=== PATIENT | female | born 1980 | race Caucasian/White ===

== ENCOUNTER 2021-06-25 07:27 | Inpatient (IN) | payer BC, OTHER ==
[~2021-06-25 07:27] MED LIST: Dexamethasone 4 MG/ML SDV ONE; Glycopyrrolate 0.2 MG/ML 5 ML MDV ONE; Midazolam 1 MG/ML 2 ML SDV ONE; Ondansetron 4 MG/2 ML SDV ONE; Propofol 200 MG/20 ML SDV ONE; Rocuronium 50 MG/5 ML Vial ONE; cefOXitin 2 GM Vial ONE; fentaNYL 250 MCG/5 ML SDV ONE
[2021-06-25] MEDS ORDERED: Celecoxib 200 MG Cap PO ONE (07:45)
[2021-06-25] MEDS ORDERED: Dextrose 5%-Lactated Ringers 1,000 ML IV SCH ×2 (07:45→13:45)
[2021-06-25] MEDS ORDERED: Acetaminophen 500 MG Tab PO ONE (07:45)
[2021-06-25] MEDS ORDERED: cefOXitin 2 GM in Sodium Chloride 0.9% 50 ML IV ONE (07:45)
[2021-06-25] MEDS ORDERED: Scopolamine 1.5 MG Transdermal Patch TOP SCH (07:45)
[2021-06-25] MEDS ORDERED: Ketamine 18 MG in Sodium Chloride 0.9% 19.82 ML IV SCH (09:15)
[2021-06-25] MEDS ORDERED: Ketamine 500 MG/5 ML MDV IV SCH (09:15)
[2021-06-25] MEDS ORDERED: Rocuronium 50 MG/5 ML Vial ONE (09:42)
[2021-06-25] MEDS ORDERED: fentaNYL 100 MCG/2 ML SDV ONE ×2 (10:45→12:03)
[2021-06-25] MEDS ORDERED: diphenhydrAMINE 50 MG/ML SDV IVPUSH PRN ×2 (10:50→14:00)
[2021-06-25] MEDS ORDERED: Ondansetron 4 MG/2 ML SDV IVPUSH PRN ×2 (10:50→14:00)
[2021-06-25] MEDS ORDERED: diphenhydrAMINE 25 MG Cap PO PRN (10:50)
[2021-06-25] MEDS ORDERED: Naloxone 0.4 MG/ML SDV IVPUSH PRN (10:50)
[2021-06-25] MEDS ORDERED: cefOXitin 2 GM Vial ONE (10:52)
[2021-06-25] MEDS: HYDROmorphone/Normal Saline 6 MG/30 ML PCA Vial IV PRN ×2 (11:08→20:25)
[2021-06-25] MEDS ORDERED: Sugammadex Sodium 200 MG/2 ML VIAL ONE (11:14)
[2021-06-25] MEDS ORDERED: Meropenem 500 MG SDV ONE (11:18)
[2021-06-25] MEDS ORDERED: Sodium Chloride 0.9% 10 ML ONE (11:18)
[2021-06-25] MEDS ORDERED: Naloxone 0.4 MG/ML SDV IV PRN (12:00)
[2021-06-25] MEDS ORDERED: fentaNYL 100 MCG/2 ML SDV IVPUSH ONE (12:46)
[2021-06-25] MEDS ORDERED: hydrOXYzine HCL 100 MG/2 ML SDV IM ONE (12:46)
[2021-06-25] MEDS ORDERED: Labetalol 100 MG/20 ML MDV IVPUSH PRN (13:52)
[2021-06-25] MEDS ORDERED: Metoclopramide 10 MG/2 ML SDV IVPUSH PRN (14:00)
[2021-06-25] MEDS ORDERED: Acetaminophen 500 MG Tab PO PRN (14:00)
[2021-06-25] MEDS ORDERED: Labetalol 20 MG/4 ML Syringe IVPUSH PRN (14:00)
[2021-06-25] MEDS ORDERED: Pantoprazole 40 MG Vial IVPUSH SCH (14:00)
[2021-06-25] MEDS: Acetaminophen 500 MG Tab PO SCH (15:11)
[2021-06-25] MEDS: Heparin Sodium 5,000 Units/ML Vial SUBCUT SCH (15:11)
[2021-06-25] MEDS: cefOXitin 2 GM in Sodium Chloride 0.9% 50 ML IV SCH ×2 (15:16→21:57)
[2021-06-25] MEDS: MVI, Adult with Vitamin K 10 ML, Thiamine 200 MG, Zinc/Copper/Manganese/Selenium 1 ML i... IV SCH ×4 (16:09)
[2021-06-26] MEDS: Acetaminophen 500 MG Tab PO SCH ×4 (00:18→23:00)
[2021-06-26] MEDS ORDERED: Iopamidol 612 MG/ML 50 ML SDV PO STA (02:46)
[2021-06-26] MEDS: Heparin Sodium 5,000 Units/ML Vial SUBCUT SCH ×2 (03:13→15:03)
[2021-06-26] MEDS: cefOXitin 2 GM in Sodium Chloride 0.9% 50 ML IV SCH ×4 (03:13→22:51)
[2021-06-26] MEDS ORDERED: Ondansetron 4 MG Tab.DIS PO PRN (07:41)
[2021-06-26] MEDS: Dextrose 5%-Lactated Ringers 1,000 ML IV SCH (08:24)
[2021-06-26] MEDS: Celecoxib 200 MG Cap PO SCH ×2 (08:26→20:14)
[2021-06-26] MEDS: Citalopram 20 MG Tab PO SCH (08:26)
[2021-06-26] MEDS: SCOPOLAMINE PATCH CHECK TOP SCH (08:27)
--- NOTE | 2021-06-26 08:33 | PN ---
DATE OF SERVICE: 06/26/2021 SUBJECTIVE: Bozena is postop day 1. Upper GI was normal this morning. Oral intake 2300, output 3100. LUCY drain put out 115 mL of a light pink drainage. She has been up ambulating. Using her incentive spirometer. Vital signs stable. REVIEW OF SYSTEMS: Remainder of review of systems negative for any pertinent positives and negatives. OBJECTIVE: GENERAL: Bozena Mcgarry is a pleasant 41-year-old female. VITAL SIGNS: TPR is 97.9, 86, 16, blood pressure 136/90. HEENT: Negative. NECK: Supple. HEART: Regular rate and rhythm. LUNGS: Clear. ABDOMEN: Dressing dry and intact. Abdominal binder is on. LUCY drain as above. EXTREMITIES: Without peripheral edema. ASSESSMENT: Laparoscopic turned to open procedure. 1. Naomi-en-Y gastric bypass surgery. 2. Jonathan-Cut needle liver biopsy. 3. Small bowel resection en bloc with mesenteric mass. 4. Placement of Vicryl mesh. POSTOPERATIVE DIAGNOSES: 1. Morbid obesity. 2. Hepatomegaly. 3. Mesenteric mass proximal small bowel. Date of procedure 06/25/2021. Surgeon: Hoang Chan MD. PLAN: 1. Discontinue Roth catheter. 2. Decrease IV to 100 mL/hr. 3. Step 2 gastric bypass diet with no cereal. 4. May shower. 5. Zofran 4 mg ODT q.4 hours p.r.n. nausea. 6. Discontinue PROMOTIONS OFFICER per the patient's request. Discontinue oximetry and telemetry. 7. Oxycodone 5 mg q.4 hours p.r.n. pain. 8. Communication order, 3 med cups per hour, record at bedside. 9. Continue use of incentive spirometer and ambulation. 10.We will evaluate p.r.n. or in a.m. Ernestine Charles PA-C /[id number]
--- NOTE | 2021-06-26 09:26 | CR ---
[facility] HISTORY: Postbariatric surgery FINDINGS: Patient swallowed water-soluble contrast. Upright views of the abdomen show no evidence of extravasation or obstruction. There is a surgical drain in the left upper quadrant. IMPRESSION: Status post bariatric surgery No extravasation or obstruction seen
[2021-06-26] MEDS: oxyCODONE 5 MG Tab PO PRN ×3 (11:47→20:13)
[2021-06-26] MEDS: Cyclobenzaprine 10 MG Tab PO PRN (11:49)
[2021-06-26] MEDS ORDERED: Pantoprazole 40 MG Delayed-Release Granules 1 Packet PO SCH (14:00)
[2021-06-26] MEDS: hydrOXYzine HCL 100 MG/2 ML SDV IM PRN (15:03)
[2021-06-26] MEDS: MVI, Adult with Vitamin K 10 ML, Thiamine 200 MG, Zinc/Copper/Manganese/Selenium 1 ML i... IV SCH ×4 (17:14)
[2021-06-27] MEDS: Heparin Sodium 5,000 Units/ML Vial SUBCUT SCH (02:58)
[2021-06-27] MEDS: oxyCODONE 5 MG Tab PO PRN ×2 (02:58→10:56)
[2021-06-27] MEDS: cefOXitin 2 GM in Sodium Chloride 0.9% 50 ML IV SCH (03:00)
[2021-06-27] MEDS: Dextrose 5%-Lactated Ringers 1,000 ML IV SCH (03:00)
[2021-06-27] MEDS ORDERED: Magnesium Hydroxide 400 MG/5 ML Susp 30 ML Cup PO PRN (07:33)
[2021-06-27] MEDS: Acetaminophen 500 MG Tab PO SCH (07:46)
[2021-06-27] MEDS: Cyclobenzaprine 10 MG Tab PO PRN (07:51)
[2021-06-27] MEDS: hydrOXYzine HCL 100 MG/2 ML SDV IM PRN (07:56)
[2021-06-27] MEDS: Celecoxib 200 MG Cap PO SCH (08:03)
[2021-06-27] MEDS: SCOPOLAMINE PATCH CHECK TOP SCH (08:03)
[2021-06-27] MEDS: Citalopram 20 MG Tab PO SCH (08:03)
[2021-06-27] MEDS ORDERED: Cyanocobalamin (Vitamin B12) 1,000 MCG/ML SDV IM ONE (09:00)
--- NOTE | 2021-06-27 09:40 | OR ---
DATE OF PROCEDURE: 06/25/2021 SURGEON: Hoang Chan MD PREOPERATIVE DIAGNOSIS: Morbid obesity. POSTOPERATIVE DIAGNOSES: 1. Morbid obesity. 2. Marked hepatomegaly. 3. Mesenteric mass involving partially obstructing proximal small bowel. OPERATIVE PROCEDURE: 1. Diagnostic laparoscopy converted to open laparotomy with: a. Naomi-en-Y gastric bypass (40565). b. Jonathan-Cut needle liver biopsy (77444). c. Small bowel resection en bloc with mesenteric mass (20056, [id number]). d. Placement of Vicryl mesh to displace pelvic and abdominal wall from underlying viscera to limit subsequent adhesion formation (47979). ANESTHESIA: General. PRODUCT MANAGEMENT ANALYST: Ernestine Charles PA-C; GHULAM Barry. INDICATIONS FOR PROCEDURE: A 41-year-old female status post lap band placement and subsequent lap band removal in [place] in March of last year. She presents now for a Naomi- en-Y gastric bypass. Potential risks of the procedure including bleeding, infection, injury to underlying viscera, problems with bowel obstruction over time, leaks from GI tract closures, as well as possibility of cardiopulmonary, septic, or hemorrhagic complications leading to were discussed, and the patient wishes to proceed. DETAILS OF PROCEDURE: The patient was taken to the operating room. After general endotracheal anesthesia was induced, she was placed in a lithotomy position and the abdomen prepped and draped. Subsequently, Roth catheter was inserted at the conclusion of the procedure. After the abdomen was prepped and draped, a transverse incision was made 15 cm inferior and 5 cm left of the xiphoid process, and the peritoneal cavity entered under direct vision with an Optiview trocar. Peritoneal cavity was inflated with 15 mmHg pressure with CO2. Laparoscope was then inserted. No underlying trocar insertion site injuries were seen. Bilateral transversus abdominis plane blocks were then placed, and initially the patient was noted to have a marked hepatomegaly. Five additional trocars were placed across the upper and mid abdomen, and Jonathan-Cut needle biopsy from left lobe of liver was obtained and bleeding from the biopsy site was controlled with electrocautery. At this point, the omentum was divided in the midline up to the level of the transverse colon and small bowel identified at ligament of Treitz. Roughly 30 cm distal to the ligament of Treitz, the patient was noted to have a large mesenteric mass, roughly the size of a tennis ball. The small bowel was draped over it, partially obstructing the bowel distended proximal to this. The mass was fairly mobile and not associated with any fixation to the surrounding structures. However, this clearly would require resection. Differential diagnosis would include a desmoid tumor along with other possibilities. At that point, the family was informed of the findings and we decided to proceed with an open approach with removal of the mass. If there did not appear to be any contraindication at the end of a mass excision, we would then continue with the gastric bypass procedure. After the trocars were removed, the midline incision from the xiphoid just above the umbilicus was made and carried down through the skin and subcutaneous tissue and through the fascia into the peritoneal cavity. The mass was then mobilized upward. This again was noted to have small bowel draped over it. Several centimeters proximal and distal to the point of fixation, the small bowel was divided with the VARINDER stapler and the underlying mesentery was then divided with the VARINDER marie containing what appeared to be a satisfactory margin away from the mass and the specimen consisting of the mesenteric mass and the en bloc small-bowel resection was delivered from the field. The small bowel was then run through its length as was the large bowel, no additional mesenteric pathology was seen, and there was otherwise no evidence of any metastatic disease either intraperitoneally or within the viscera. There is no lymphadenopathy noted within the mesenteric or paraaortic areas. At this point, we used the present level of resection as a point of formation of the Naomi limb. The proximal small bowel at this point was roughly 10 cm distal to the ligament of Treitz allowing adequate use of that for the biliopancreatic limb and it was then anastomosed to the small bowel roughly 150 cm distal to the point of division giving the Naomi limb length of 150 cm. A [id number] enterostomy was accomplished with an internal firing of the Endo-VARINDER 60 mm stapler followed by the closure of the common opening with VARINDER stapler as well. Angles of anastomosis and mesenteric defect were approximated with some 3- 0 Vicryl stitch. At this point, attention was taken to the upper abdomen. The left triangular ligament was divided which allowed medial retraction of the left lobe of liver. Some adhesions between the area of the previous band were then taken down with a combination of cautery and staple dissection. The stomach just below the esophagogastric junction was then encircled. This was in a relatively clean plane away from the likely band imprint, and after being encircled, this area was then divided with 2 firings of VARINDER black loads given the relatively thick nature of the tissue at that level. The anvil of a 25 mm EEA stapler was then attached to Heidrick sump type tube. The latter was brought down through the mouth and taken out through a small opening in the gastric pouch, allowing the anvil to be pulled down to within the gastric pouch. The main body of the EEA stapler was then passed through an opening at the end of the Naomi limb. This was brought through gastric antecolic approach without tension to the proximal divided stomach. This was united with the anvil and the stapler fired thus creating the gastrojejunostomy. Upon removal of the stapler, double donuts of mucosa were noted within it. Small bowel was closed off with a vascular staple line. The gastrojejunostomy was reinforced with some 3-0 Vicryl seromuscular stitch. At this point, the abdomen was irrigated with meropenem- containing saline solution. No further problems were noted. There were some stitches placed between the mesentery of the Naomi limb and the underlying omentum and perigastric soft tissues to close off the mesenteric defect. A single Devan-Dsouza drain was placed through a left subcostal trocar site and positioned up against the gastrojejunostomy and from there into the splenic fossa. At this point, no further problems were noted. To limit recurrent adhesion formation between the viscera and the pelvic and abdominal wall, a 12 inch area of Vicryl mesh was placed in those areas given the likelihood of possible need for additional surgery given the tumor being identified. The fascia was then approximated with #2 Vicryl stitch, subcutaneous tissue with 2 layers of 3-0 and 4-0 Vicryl stitch, and the skin with marie. Dressing was applied. The patient was taken to the recovery room in satisfactory condition. Physician clothing sales assistant, Ernestine Charles, played an essential role in assisting in this case, helping to position the patient, retract structures as needed, as well as suturing and cutting sutures when indicated. Her presence improved patient safety and decreased operative time. Hoang Chan MD /[id number]
--- NOTE | 2021-06-27 10:24 | DISCH ---
ADMISSION DIAGNOSES: Morbid obesity, iron deficiency anemia, gastroesophageal reflux disease, depression, and history of lap band removal. DISCHARGE DIAGNOSES: Laparoscopy turned to open laparotomy: 1. Naomi-en-Y gastric bypass surgery. 2. Jonathan-Cut needle liver biopsy. 3. Small bowel resection en bloc with mesenteric mass. 4. Placement of Vicryl mesh. POSTOPERATIVE DIAGNOSES: 1. Morbid obesity. 2. Hepatomegaly. 3. Mesenteric mass in proximal small bowel. Date of procedure 06/25/2021. Surgeon: Hoang Chan MD. HISTORY: Bozena is a 41-year-old female with longstanding history of morbid obesity and increasing comorbidities. After preoperative evaluation, discussion of possible risks and possible complications, she wished to proceed with surgical procedure. HOSPITAL COURSE: Bozena had her surgery on 06/25/2021. It was laparoscopic, but a mass was noted in the small bowel, so was turned to an open procedure. She had no operative complications. On postop day 1, started on a step 2 gastric bypass diet with no cereal. Her QUICK PRINT OPERATOR was discontinued and she was started on oral pain medication. On postop day 2, vital signs stable. She received adequate dietary instruction. Vitamin B12, 1000 mcg injection. She had adequate oral intake and output and she was able to be discharged to home. PHYSICAL EXAMINATION: GENERAL: Bozena Mcgarry is a pleasant 41-year-old female. VITAL SIGNS: Height is 5 feet 7 inches, weight is 268 pounds, BMI is 42. TPR is 97.3, 80, 16, blood pressure 135/87. HEENT: Negative. NECK: Supple. HEART: Regular rate and rhythm. LUNGS: Clear. ABDOMEN: Staple line looks good. A new Aquacel dressing will be replaced. LUCY drain will be removed. Abdominal binder is on. EXTREMITIES: Without peripheral edema. DISPOSITION: Discharged to home. CONDITION: Stable and improving. HOME MEDICATIONS: Celebrex 200 mg p.o. b.i.d., #28; Flexeril 10 mg p.o. q.8 hours p.r.n. muscle spasms, #30; oxycodone 5 mg q.6 hours p.r.n. pain, #12; and Zofran ODT 4 mg p.o. q.4 hours p.r.n. nausea and vomiting, #30. She is to resume her home medications of Celexa 40 mg p.o. daily and bupropion 150 mg p.o. b.i.d. Milk of magnesia 2 doses were sent home with the patient to take 1 daily if needed for constipation. FOLLOWUP APPOINTMENT: With Ernestine Charles PA-C, at [facility], 07/05/2021 at 11 a.m. DIET: Step 2 gastric bypass diet with no cereal until 07/10/2021. Drink 8 to 10 glasses of water a day and have 65 g of protein. ACTIVITY: No lifting greater than 10 pounds for 4 weeks. OTHER ACTIVITY: Walk 6 times daily inside your home. Driving: Do not drive for 1 week and while on the oxycodone. Shower/bathing: May shower. Wound incision care: Keep operative site clean and dry. Wear abdominal binder for 6 weeks and then as tolerated. Notify provider if any fever, increased pain, swelling, redness, drainage, nausea, or vomiting. SPECIAL INSTRUCTIONS: 1. Use incentive spirometer 10 times every hour while awake for 1 week. 2. Walk 3 minutes for every hour you are in the car for about 1 month. /[id number]
== END 2021-06-27 11:00 | disposition home or self-care (01) | DRG 621 ==
LOC: JP.SDSSCHI 07:27 → JP.SDS 07:27 → EDSTATUS 11:00 → JP.MS 12:20
PROVIDERS: ADMIT Surgery; ATTEND Surgery
PROC: 0D160ZA Bypass Stomach to Jejunum, Open Approach (ICD-10-PCS; principal; 2021-06-25)
PROC: 0DB80ZZ Excision of Small Intestine, Open Approach (ICD-10-PCS; 2021-06-25)
PROC: 0FB20ZX Excision of Left Lobe Liver, Open Approach, Diagnostic (ICD-10-PCS; 2021-06-25)
PROC: 3E0M05Z Introduction of Adhesion Barrier into Peritoneal Cavity, Open Approach (ICD-10-PCS; 2021-06-25)
DX: E66.01 Morbid (severe) obesity due to excess calories (principal); D50.9 Iron deficiency anemia, unspecified; K21.9 Gastro-esophageal reflux disease without esophagitis; F32.A Depression, unspecified; R16.0 Hepatomegaly, not elsewhere classified; K63.89 Other specified diseases of intestine; Z68.41 Body mass index [BMI] 40.0-44.9, adult
CPT/HCPCS: 36415; 74240; 74240-26; 80053; 82728; 83735; 83880; 84100; 84703; 85025; 85027; 86850; 86900; 86901; A9270-GY; C1781; C9113; J0171; J0694; J1100; J1170; J1644; J2185; J2250; J2405; J2704; J2795; J3010; J3410; J3411; J3420; J3490; J7121; Q9967